=== PATIENT | female | born 1945 | race African-American/Black ===

== ENCOUNTER 2016-08-11 21:06 | Emergency (ER) | payer MEDICARE ==
[~2016-08-11] VITALS: Ht 162.6 cm; Wt 71.0 kg
[~2016-08-11 21:06] MED LIST: ASPI-1073 PO; ATEN-42 PO; ATEN50TA PO; CLOP75TA2 PO; LEVO75TA7 PO; SIMV20TA6 PO; VALS1TAB33 PO
[2016-08-11 21:43] VITALS: BP 150/87
== END 2016-08-11 22:35 | disposition left against medical advice (07) ==
LOC: ER 21:10
DX: R53.1 Weakness (principal); Z53.21 Procedure and treatment not carried out due to patient leaving prior to being seen by health care provider

== ENCOUNTER 2017-07-15 07:51 | Inpatient (IN) | payer MEDICARE ==
[~2017-07-15] VITALS: Ht 162.6 cm; Wt 71.7 kg
[2017-07-15] VITALS (21 sets, daily range): BP systolic 56–135; BP diastolic 17–80
[~2017-07-15 07:51] MED LIST changes: +ACET-2708 PO; +AROM25 PO; -ATEN50TA PO; -CLOP75TA2 PO; +MULT-1146 PO; +POTA10TA11 PO; +VITA1TAB20 PO
[2017-07-15] MEDS ORDERED: SERT25TA PO (09:40)
[2017-07-15] MEDS ORDERED: TRAM50TA3 PO (09:40)
[2017-07-15] MEDS ORDERED: ZOLP10TA2 PO (09:40)
[2017-07-15] MEDS ORDERED: IODIXANOL 320MG/ML 100 ML BOTTLE IV ONE (09:56)
[2017-07-15] MEDS ORDERED: LIDOCAINE HCL 1% 20ML VIAL (Pyxis) INJ ONE (10:07)
[2017-07-15] MEDS ORDERED: MIDAZOLAM HCL 2 MG/2 ML VIAL ONE (10:11)
[2017-07-15] MEDS ORDERED: FENTANYL CITRATE/PF 50MCG/ML 2ML VIAL ONE (10:11)
[2017-07-15] MEDS ORDERED: IOVERSOL 240MG/ML 100ML BOTTLE IV ONE (10:25)
[2017-07-15] MEDS ORDERED: ASPIRIN 325MG TABLET ONE (11:49)
[2017-07-15] MEDS ORDERED: CLOPIDOGREL 75MG TABLET ONE (11:49)
[2017-07-15] MEDS ORDERED: ATROPINE SULFATE 1MG/10ML SYR IV PRN (12:00)
[2017-07-15] MEDS ORDERED: ACETAMINOPHEN 325MG TABLET PO PRN (12:00)
[2017-07-15] MEDS ORDERED: ZOLPIDEM TARTRATE 5MG TABLET PO PRN (15:45)
[2017-07-15] MEDS ORDERED: MORPHINE SULFATE 2 MG/ML CPJ (NOT FOR IM USE) IV PRN (15:45)
[2017-07-15] MEDS ORDERED: HYDROCODONE/ACETAMINOPHEN 5/325MG TABLET PO PRN (15:45)
[2017-07-15] MEDS ORDERED: HEPARIN SODIUM 1,000 UNIT/1ML VIAL IV ONE (16:00)
[2017-07-15] MEDS ORDERED: MORPHINE SULFATE 2 MG/ML CPJ (NOT FOR IM USE) IV NR (16:20)
[2017-07-15] MEDS ORDERED: ATROPINE SULFATE 1MG/10ML SYR ONE (16:25)
[2017-07-15] MEDS ORDERED: MORPHINE SULFATE 4 MG/ML CPJ (NOT FOR IM USE) IV PRN (16:48)
[2017-07-15] MEDS ORDERED: MORPHINE SULFATE 4 MG/ML CPJ (NOT FOR IM USE) IV NR (17:00)
[2017-07-16] VITALS (14 sets, daily range): BP systolic 102–136; BP diastolic 54–73
[2017-07-16 05:50] LABS: BASOPHILS % 0.5 % (0.0-2.0); EOSINOPHILS % 2.3 % (0.0-5.0); HEMATOCRIT. 37.3 % (36.0-48.0); HEMOGLOBIN. 12.4 g/dL (12.0-16.0); LYMPHOCYTES % 24.1 % (20.0-50.0); MEAN CORPUSCULAR HEMOGLOBIN 30.6 pg (28.0-32.0); MEAN CORPUSCULAR VOLUME 92.5 fL (81.0-99.0); MEAN PLATELET VOLUME 8.2 fl (7.4-10.4); NEUTROPHILS % 64.1 % (40.0-76.0); PLATELET 176 x1000/uL (130-400); RED BLOOD CELL COUNT 4.04 mill/uL (4.2-5.4); RED CELL DISTRIBUTION WIDTH 14.9 % (11.6-14.6)
[2017-07-16 06:16] LABS: CHLORIDE 106 mEq/L (98-107)
[2017-07-16 07:06] LABS: PHOSPHORUS 3.1 mg/dL (2.5-4.9)
[2017-07-16] MEDS: CLOPIDOGREL 75MG TABLET PO SCH ×2 (09:15→09:38)
[2017-07-16] MEDS: ASPIRIN 325MG TABLET PO SCH ×2 (09:15→09:38)
[2017-07-16] MEDS ORDERED: POTASSIUM CHLORIDE 20MEQ TABLET SR PO NR (10:00)
== END 2017-07-16 11:30 | disposition home or self-care (01) | DRG 254 ==
LOC: CCL 07:51 → CVICU 07:52
PROVIDERS: ADMIT Specialist; ATTEND Specialist
PROC: B41G1ZZ Fluoroscopy of Left Lower Extremity Arteries using Low Osmolar Contrast (ICD-10-PCS; 2017-07-15)
PROC: B41F1ZZ Fluoroscopy of Right Lower Extremity Arteries using Low Osmolar Contrast (ICD-10-PCS; 2017-07-15)
PROC: 047J34Z Dilation of Left External Iliac Artery with Drug-eluting Intraluminal Device, Percutaneous Approach (ICD-10-PCS; principal; 2017-07-15 12:20)
DX: I73.9 Peripheral vascular disease, unspecified (principal); I45.10 Unspecified right bundle-branch block; I11.9 Hypertensive heart disease without heart failure; E03.9 Hypothyroidism, unspecified; E78.5 Hyperlipidemia, unspecified; E87.6 Hypokalemia; F32.9 Major depressive disorder, single episode, unspecified; I25.10 Atherosclerotic heart disease of native coronary artery without angina pectoris; I70.8 Atherosclerosis of other arteries; Z90.49 Acquired absence of other specified parts of digestive tract; Z85.048 Personal history of other malignant neoplasm of rectum, rectosigmoid junction, and anus; Z95.5 Presence of coronary angioplasty implant and graft; Z79.899 Other long term (current) drug therapy
CPT/HCPCS: 36415; 37221; 75716; 80048; 83735; 84100; 85025; 85347; C1725; C1726; C1769; C1876; C1887; C1893; C1894; J0461; J1644; J2250; J3010; J3490; J7030; Q9967

== ENCOUNTER 2018-04-08 10:53 | Inpatient (IN) | payer MEDICARE ==
[~2018-04-08] VITALS: Ht 162.6 cm; Wt 72.6 kg
[~2018-04-08 10:53] MED LIST changes: +SERT25TA PO; +TRAM50TA3 PO; +ZOLP10TA2 PO
[2018-04-08] MEDS ORDERED: FENTANYL CITRATE/PF 50MCG/ML 2ML VIAL ONE (13:59)
[2018-04-08] MEDS ORDERED: MIDAZOLAM HCL 2 MG/2 ML VIAL ONE (13:59)
[2018-04-08] MEDS ORDERED: LIDOCAINE HCL 1% 20ML VIAL (Pyxis) INJ ONE (14:00)
[2018-04-08] MEDS ORDERED: IODIXANOL 320MG/ML 100 ML BOTTLE IV ONE (14:04)
[2018-04-08] MEDS ORDERED: NITROGLYCERIN 50MCG/ML 10ML VIAL (CATH LAB) IV ONE (14:21)
[2018-04-08] MEDS ORDERED: NICARDIPINE 100MCG/ML 10ML VIAL (CATH LAB) IV ONE (14:21)
[2018-04-08] MEDS ORDERED: IOHEXOL-300 100 ML BOTTLE ONE (14:29)
[2018-04-08] MEDS ORDERED: CLOP75TA33 PO (14:31)
[2018-04-08] MEDS ORDERED: HEPARIN SODIUM 1,000 UNIT/1ML VIAL IV ONE ×2 (14:49→15:08)
[2018-04-08] MEDS ORDERED: ATROPINE SULFATE 1MG/10ML SYR IV PRN (15:00)
[2018-04-08] MEDS ORDERED: ACETAMINOPHEN 325MG TABLET PO PRN (15:00)
[2018-04-08] MEDS ORDERED: ONDANSETRON HCL 4MG/2ML INJ IV PRN (15:00)
[2018-04-08] MEDS ORDERED: ASPIRIN 325MG TABLET ONE (15:05)
[2018-04-08] MEDS ORDERED: CLOPIDOGREL 75MG TABLET ONE (15:06)
[2018-04-08 15:30] VITALS: BP 144/68
[2018-04-08 15:45] VITALS: BP 128/80
[2018-04-08 18:00] VITALS: BP 124/68
[2018-04-08] MEDS ORDERED: ZOLPIDEM TARTRATE 5MG TABLET PO PRN (18:15)
[2018-04-08 20:00] VITALS: BP 148/84
[2018-04-08] MEDS ORDERED: ATORVASTATIN CALCIUM 10MG TABLET PO SCH (21:00)
[2018-04-08 22:00] VITALS: BP 135/73
[2018-04-09] VITALS (9 sets, daily range): BP systolic 95–156; BP diastolic 53–79
[2018-04-09] MEDS ORDERED: LEVOTHYROXINE SODIUM 75MCG TABLET PO SCH (06:50)
[2018-04-09 07:40] LABS: BASOPHILS % 0.8 % (0.0-2.0); EOSINOPHILS % 3.5 % (0.0-5.0); HEMATOCRIT. 42.2 % (36.0-48.0); HEMOGLOBIN. 13.9 g/dL (12.0-16.0); LYMPHOCYTES % 24.9 % (20.0-50.0); MEAN CORPUSCULAR HEMOGLOBIN 30.5 pg (28.0-32.0); MEAN CORPUSCULAR VOLUME 92.4 fL (81.0-99.0); MEAN PLATELET VOLUME 8.6 fl (7.4-10.4); MONOCYTES % 8.3 % (2.0-8.0); NEUTROPHILS % 62.5 % (40.0-76.0); PLATELET 164 x1000/uL (130-400); RED BLOOD CELL COUNT 4.57 mill/uL (4.2-5.4); RED CELL DISTRIBUTION WIDTH 15.1 % (11.6-14.6)
[2018-04-09] MEDS ORDERED: ASPIRIN 325MG TABLET PO SCH (09:00)
[2018-04-09] MEDS ORDERED: CLOPIDOGREL 75MG TABLET PO SCH (09:00)
[2018-04-09] MEDS ORDERED: ATENOLOL 25MG TABLET PO SCH (09:00)
[2018-04-09 10:37] LABS: CHLORIDE 106 mEq/L (98-107)
== END 2018-04-09 11:52 | disposition home or self-care (01) | DRG 247 ==
LOC: CCL 10:53 → 3WST 10:54
PROVIDERS: ADMIT Specialist; ATTEND Specialist
PROC: 4A023N7 Measurement of Cardiac Sampling and Pressure, Left Heart, Percutaneous Approach (ICD-10-PCS; principal; 2018-04-08)
PROC: 027034Z Dilation of Coronary Artery, One Artery with Drug-eluting Intraluminal Device, Percutaneous Approach (ICD-10-PCS; 2018-04-08)
PROC: B2111ZZ Fluoroscopy of Multiple Coronary Arteries using Low Osmolar Contrast (ICD-10-PCS; 2018-04-08)
PROC: B2151ZZ Fluoroscopy of Left Heart using Low Osmolar Contrast (ICD-10-PCS; 2018-04-08)
PROC: B240ZZ3 Ultrasonography of Single Coronary Artery, Intravascular (ICD-10-PCS; 2018-04-08)
DX: T82.855A Stenosis of coronary artery stent, initial encounter (principal); I50.22 Chronic systolic (congestive) heart failure; I25.10 Atherosclerotic heart disease of native coronary artery without angina pectoris; E03.9 Hypothyroidism, unspecified; E78.5 Hyperlipidemia, unspecified; F51.04 Psychophysiologic insomnia; I11.0 Hypertensive heart disease with heart failure; I73.9 Peripheral vascular disease, unspecified; C50.919 Malignant neoplasm of unspecified site of unspecified female breast; Y83.1 Surgical operation with implant of artificial internal device as the cause of abnormal reaction of the patient, or of later complication, without mention of misadventure at the time of the procedure; Y92.89 Other specified places as the place of occurrence of the external cause; Z79.899 Other long term (current) drug therapy
CPT/HCPCS: 36415; 80048; 85347; 92928; 92978; 93005; 93458; C1725; C1753; C1769; C1874; C1887; C1893; J1644; J2250; J3010; J3490; Q9967

== ENCOUNTER 2021-01-16 09:05 | Inpatient (IN) | payer MEDICARE ==
[~2021-01-16] VITALS: Ht 167.6 cm; Wt 70.5 kg
[~2021-01-16 09:05] MED LIST changes: +CLOP75TA33 PO; +HEPARIN SODIUM 1,000 UNIT/1ML VIAL IV ONE; +NICARDIPINE 100MCG/ML 10ML VIAL (CATH LAB) IV ONE; +NITROGLYCERIN 50MCG/ML 10ML VIAL (CATH LAB) IV ONE; -SERT25TA PO; +SIMV-43 PO; -SIMV20TA6 PO; -TRAM50TA3 PO; -VALS1TAB33 PO
[2021-01-16] MEDS ORDERED: SODIUM CHLORIDE 0.45% 500 ML IV ONE (09:45)
[2021-01-16] MEDS ORDERED: COR6 MT (09:53)
[2021-01-16] MEDS ORDERED: TRAM50TA3 MT (10:23)
[2021-01-16] MEDS ORDERED: LIDOCAINE HCL 1% 20ML VIAL (Pyxis) INJ ONE (12:43)
[2021-01-16] MEDS ORDERED: IODIXANOL 320MG/ML 100 ML BOTTLE IV ONE ×2 (12:44→13:40)
[2021-01-16] MEDS ORDERED: MIDAZOLAM HCL 5 MG/5 ML VIAL ONE (13:00)
[2021-01-16] MEDS ORDERED: FENTANYL CITRATE/PF 50MCG/ML 5ML VIAL ONE (13:01)
[2021-01-16] MEDS ORDERED: HEPARIN 1000 UNITS/ML 10ML ONE (13:26)
[2021-01-16] MEDS ORDERED: IOHEXOL-300 100 ML BOTTLE ONE (13:34)
[2021-01-16] MEDS ORDERED: CLOPIDOGREL 75MG TABLET ONE (13:52)
[2021-01-16] MEDS ORDERED: ASPIRIN 325MG TABLET ONE (13:52)
[2021-01-16] MEDS ORDERED: ACETAMINOPHEN 325MG TABLET PO PRN (14:00)
[2021-01-16] MEDS ORDERED: ATROPINE SULFATE 1MG/10ML SYR IV PRN (14:00)
[2021-01-16] MEDS ORDERED: MIDAZOLAM HCL 2 MG/2 ML VIAL ONE (14:21)
[2021-01-16] MEDS ORDERED: FENTANYL CITRATE/PF 50MCG/ML 2ML VIAL ONE (14:21)
[2021-01-16 16:00] VITALS: BP 156/74
[2021-01-16 16:14] VITALS: BP 156/74
[2021-01-16 18:00] VITALS: BP 124/71
[2021-01-16 20:00] VITALS: BP 103/58
[2021-01-16] MEDS: CARVEDILOL 3.125 MG TABLET PO SCH (20:43)
[2021-01-16] MEDS ORDERED: ATORVASTATIN CALCIUM 10MG TABLET PO SCH (21:00)
[2021-01-16 22:00] VITALS: BP 116/60
[2021-01-17] VITALS (8 sets, daily range): BP systolic 103–156; BP diastolic 62–97
[2021-01-17] MEDS: CARVEDILOL 3.125 MG TABLET PO SCH (08:40)
[2021-01-17] MEDS ORDERED: CLOPIDOGREL 75MG TABLET PO SCH (09:00)
[2021-01-17] MEDS ORDERED: ASPIRIN 325MG TABLET PO SCH (09:00)
[2021-01-17 10:45] LABS: BASOPHILS % 0.5 % (0.0-2.0); EOSINOPHILS % 2.9 % (0.0-5.0); HEMATOCRIT. 42.5 % (36.0-48.0); HEMOGLOBIN. 14.1 g/dL (12.0-16.0); LYMPHOCYTES % 18.6 % (20.0-50.0); MEAN CORPUSCULAR VOLUME 93.4 fL (81.0-99.0); MEAN PLATELET VOLUME 8.2 fl (7.4-10.4); PLATELET 156 x1000/uL (130-400); RED BLOOD CELL COUNT 4.55 mill/uL (4.2-5.4); RED CELL DISTRIBUTION WIDTH 14.7 % (11.6-14.6)
== END 2021-01-17 13:30 | disposition home or self-care (01) | DRG 247 ==
LOC: CCL 09:05 → 3WST 09:06
PROVIDERS: ADMIT Specialist; ATTEND Specialist
PROC: 027035Z Dilation of Coronary Artery, One Artery with Two Drug-eluting Intraluminal Devices, Percutaneous Approach (ICD-10-PCS; principal; 2021-01-16)
PROC: 4A023N7 Measurement of Cardiac Sampling and Pressure, Left Heart, Percutaneous Approach (ICD-10-PCS; 2021-01-16)
PROC: B211YZZ Fluoroscopy of Multiple Coronary Arteries using Other Contrast (ICD-10-PCS; 2021-01-16)
PROC: B215YZZ Fluoroscopy of Left Heart using Other Contrast (ICD-10-PCS; 2021-01-16)
DX: T82.855A Stenosis of coronary artery stent, initial encounter (principal); I13.0 Hypertensive heart and chronic kidney disease with heart failure and stage 1 through stage 4 chronic kidney disease, or unspecified chronic kidney disease; I25.10 Atherosclerotic heart disease of native coronary artery without angina pectoris; E78.5 Hyperlipidemia, unspecified; G89.4 Chronic pain syndrome; I25.5 Ischemic cardiomyopathy; I45.10 Unspecified right bundle-branch block; I34.0 Nonrheumatic mitral (valve) insufficiency; I73.9 Peripheral vascular disease, unspecified; E66.9 Obesity, unspecified; I50.9 Heart failure, unspecified; N18.9 Chronic kidney disease, unspecified; K21.9 Gastro-esophageal reflux disease without esophagitis; Y83.8 Other surgical procedures as the cause of abnormal reaction of the patient, or of later complication, without mention of misadventure at the time of the procedure; Z85.3 Personal history of malignant neoplasm of breast; Z79.02 Long term (current) use of antithrombotics/antiplatelets; Z79.899 Other long term (current) drug therapy; Z79.82 Long term (current) use of aspirin; Z79.1 Long term (current) use of non-steroidal anti-inflammatories (NSAID); Z79.890 Hormone replacement therapy; Z68.25 Body mass index [BMI] 25.0-25.9, adult; Z87.891 Personal history of nicotine dependence; Y92.89 Other specified places as the place of occurrence of the external cause
CPT/HCPCS: 36415; 80048; 83735; 85025; 85347; 92928; 93005; 93458; C1769; C1874; C1887; C1893; J1644; J2250; J3010; J3490; Q9967

== ENCOUNTER 2023-09-23 19:47 | Emergency (ER) | payer MEDICAID, MEDICARE ==
[~2023-09-23] VITALS: Ht 165.1 cm; Wt 73.0 kg
[~2023-09-23 19:47] MED LIST changes: +COR6 MT; -HEPARIN SODIUM 1,000 UNIT/1ML VIAL IV ONE; -NICARDIPINE 100MCG/ML 10ML VIAL (CATH LAB) IV ONE; -NITROGLYCERIN 50MCG/ML 10ML VIAL (CATH LAB) IV ONE; +POTA-185 PO; -POTA10TA11 PO; +TRAM50TA3 MT; +VITA-384 PO; -VITA1TAB20 PO; -ZOLP10TA2 PO
[2023-09-23 19:49] VITALS: TEMP 98.5; O2SAT 99
[2023-09-23] MEDS ORDERED: DICL100G58 TP (21:59)
[2023-09-23 22:28] VITALS: BP 171/86; PULSE 68; RESP 20
== END 2023-09-23 22:30 | disposition home or self-care (01) ==
LOC: ER 19:47
DX: S83.8X1A Sprain of other specified parts of right knee, initial encounter (principal); E78.00 Pure hypercholesterolemia, unspecified; I10 Essential (primary) hypertension; E05.80 Other thyrotoxicosis without thyrotoxic crisis or storm; X58.XXXA Exposure to other specified factors, initial encounter; Y93.89 Activity, other specified; Y92.89 Other specified places as the place of occurrence of the external cause; Y99.8 Other external cause status
CPT/HCPCS: 73560; 99283

== ENCOUNTER 2023-12-01 02:29 | Inpatient (IN) | payer MEDICARE ==
[~2023-12-01] VITALS: Ht 165.1 cm; Wt 70.3 kg
[~2023-12-01 02:29] MED LIST changes: +DICL100G58 TP; -VITA-384 PO; +VITA1TAB20 PO
[2023-12-01 03:15] LABS: BASOPHILS % 1.3 % (0.0-2.0); EOSINOPHILS % 2.1 % (0.0-5.0); HEMATOCRIT. 40.3 % (36.0-48.0); LYMPHOCYTES % 14.9 % (20.0-50.0); MEAN CORPUSCULAR HEMOGLOBIN 29.8 pg (28.0-32.0); MEAN CORPUSCULAR HGB CONC 32.2 g/dL (31.0-37.0); MEAN CORPUSCULAR VOLUME 92.8 fL (81.0-99.0); MEAN PLATELET VOLUME 8.9 fl (7.4-10.4); MONOCYTES % 7.4 % (2.0-8.0); NEUTROPHILS % 74.3 % (40.0-76.0); PLATELET 162 x1000/uL (130-400); RED BLOOD CELL COUNT 4.35 mill/uL (4.2-5.4); RED CELL DISTRIBUTION WIDTH 15.9 % (11.6-14.6); WHITE BLOOD COUNT 6.4 x1000/uL (4.5-11.0)
[2023-12-01 03:25] LABS: CARBON DIOXIDE 27 mEq/L (21-32); CHLORIDE 109 mEq/L (98-107); POTASSIUM 3.7 mEq/L (3.5-5.1); SODIUM 142 mEq/L (136-145)
[2023-12-01 03:26] LABS: CALCIUM 10.2 mg/dL (8.7-10.4); PARTIAL THROMBOPLASTIN TIME 23.8 sec (23.4-31.0)
[2023-12-01 03:31] LABS: GLUCOSE 130 mg/dL (70-105); UREA NITROGEN BLOOD 11 mg/dL (9-23)
[2023-12-01 04:13] LABS: ETHANOL BLOOD < 10 mg/dL (<10); TROPONIN I HIGH SENSITIVITY 200 ng/L (3.0-34)
[2023-12-01] MEDS ORDERED: HEPARIN 60 UNITS/KG BOLUS IV SCH (04:45)
[2023-12-01] MEDS ORDERED: HEPARIN BOLUS PRN aPTT 30-44 IV ×2 (04:45)
[2023-12-01] MEDS ORDERED: HEPARIN BOLUS PRN aPTT <30 IV ×2 (04:45)
[2023-12-01] MEDS: HEPARIN 60 UNITS/KG BOLUS IV NR (06:09)
[2023-12-01] MEDS: HEPARIN 25,000 UNITS PREMIX 250 ML IV SCH (06:13)
[2023-12-01] MEDS ORDERED: ONDANSETRON HCL 4MG/2ML INJ IV PRN (06:15)
[2023-12-01] MEDS ORDERED: IPRATROPIUM/ALBUTEROL 0.5-3(2.5)MG/3ML NEB HHN PRN (06:15)
[2023-12-01] MEDS: ASPIRIN 325MG EC TABLET PO NR (06:16)
[2023-12-01] MEDS ORDERED: ASPIRIN 81MG EC TABLET PO SCH (09:00)
[2023-12-01] MEDS ORDERED: CLOPIDOGREL 75MG TABLET PO SCH (09:00)
[2023-12-01] MEDS ORDERED: CARVEDILOL 6.25 MG TABLET PO SCH (09:00)
[2023-12-01] MEDS ORDERED: ATENOLOL 25MG TABLET PO SCH (09:00)
[2023-12-01 09:47] LABS: TROPONIN I HIGH SENSITIVITY 149 ng/L (3.0-34)
[2023-12-01 12:13] VITALS: BP 170/73; PULSE 63; RESP 20; TEMP 98.8
[2023-12-01] MEDS: CLONIDINE 0.1MG TABLET PO PRN (12:40)
[2023-12-01 16:00] VITALS: BP 121/58; PULSE 61; RESP 18; TEMP 97.5
[2023-12-01] MEDS: NITROGLYCERIN OINT 1GM/INCH UDPKT TD SCH (16:11)
[2023-12-01] MEDS: ASPIRIN 81MG TABLET PO SCH (16:12)
[2023-12-01] MEDS: ENOXAPARIN 80MG/0.8ML SYR SUBCUT SCH (16:13)
[2023-12-01 17:15] LABS: CREATINE KINASE MB FRACTION 2.1 ng/mL (0.5-3.6)
[2023-12-01 20:00] VITALS: BP 127/80; PULSE 59; RESP 18; TEMP 98.1
[2023-12-01] MEDS: CARVEDILOL 6.25 MG TABLET PO SCH (20:56)
[2023-12-01] MEDS: ATORVASTATIN CALCIUM 40MG TABLET PO SCH (21:00)
[2023-12-01] MEDS: FUROSEMIDE 40MG/4ML VIAL IVP SCH (21:00)
[2023-12-01] MEDS ORDERED: ATORVASTATIN CALCIUM 20MG TABLET PO SCH (21:00)
[2023-12-02] VITALS (7 sets, daily range): BP systolic 108–163; BP diastolic 54–77; PULSE 53–69; RESP 16–18; TEMP 97.5–98.5
[2023-12-02] MEDS: ACETAMINOPHEN 325MG TABLET PO PRN (00:17)
[2023-12-02] MEDS: LEVOTHYROXINE SODIUM 75MCG TABLET PO SCH (05:04)
[2023-12-02 07:25] LABS: CARBON DIOXIDE 25 mEq/L (21-32); CHLORIDE 108 mEq/L (98-107); POTASSIUM 3.6 mEq/L (3.5-5.1); SODIUM 141 mEq/L (136-145)
[2023-12-02 07:26] LABS: CALCIUM 9.6 mg/dL (8.7-10.4); EOSINOPHILS % 2.8 % (0.0-5.0); HEMATOCRIT. 36.6 % (36.0-48.0); HEMOGLOBIN. 11.7 g/dL (12.0-16.0); LYMPHOCYTES % 21.4 % (20.0-50.0); MEAN CORPUSCULAR HEMOGLOBIN 29.6 pg (28.0-32.0); MEAN CORPUSCULAR HGB CONC 32.1 g/dL (31.0-37.0); MEAN CORPUSCULAR VOLUME 92.3 fL (81.0-99.0); MONOCYTES % 11.1 % (2.0-8.0); NEUTROPHILS % 63.7 % (40.0-76.0); PLATELET 154 x1000/uL (130-400); RED BLOOD CELL COUNT 3.96 mill/uL (4.2-5.4); RED CELL DISTRIBUTION WIDTH 15.5 % (11.6-14.6); WHITE BLOOD COUNT 5.2 x1000/uL (4.5-11.0)
[2023-12-02 07:31] LABS: CREATININE 0.9 mg/dL (0.6-1.0); GLUCOSE 88 mg/dL (70-105); UREA NITROGEN BLOOD 12 mg/dL (9-23)
[2023-12-02 08:11] LABS: TROPONIN I HIGH SENSITIVITY 166 ng/L (3.0-34)
[2023-12-02] MEDS: POTASSIUM CHLORIDE 20MEQ TABLET SR PO SCH (09:29)
[2023-12-02 09:30] LABS: T4 FREE 1.47 ng/dL (0.89-1.76); THYROID STIMULATING HORMONE 2.7 uIU/mL (0.55-4.78)
[2023-12-02] MEDS: CLOPIDOGREL 75MG TABLET PO SCH (09:33)
[2023-12-02] MEDS: MAGNESIUM OXIDE 400MG TABLET PO SCH (10:48)
[2023-12-02] MEDS: MAGNESIUM 2 G PREMIX 50 ML IV NR (10:48)
[2023-12-02] MEDS: GUAIFENESIN 200MG/10ML SUGAR FREE UDC PO SCH (18:30)
[2023-12-03 04:00] VITALS: BP 150/72; PULSE 58; RESP 16; TEMP 97.6
[2023-12-03] MEDS: FUROSEMIDE 40MG/4ML VIAL IVP SCH (06:43)
[2023-12-03 07:31] LABS: BASOPHILS % 0.6 % (0.0-2.0); EOSINOPHILS % 2.4 % (0.0-5.0); HEMATOCRIT. 39.2 % (36.0-48.0); HEMOGLOBIN. 12.6 g/dL (12.0-16.0); LYMPHOCYTES % 19.2 % (20.0-50.0); MEAN CORPUSCULAR HEMOGLOBIN 29.7 pg (28.0-32.0); MEAN CORPUSCULAR VOLUME 92.7 fL (81.0-99.0); MEAN PLATELET VOLUME 8.6 fl (7.4-10.4); MONOCYTES % 11.1 % (2.0-8.0); NEUTROPHILS % 66.7 % (40.0-76.0); PLATELET 166 x1000/uL (130-400); RED BLOOD CELL COUNT 4.23 mill/uL (4.2-5.4); RED CELL DISTRIBUTION WIDTH 15.5 % (11.6-14.6); WHITE BLOOD COUNT 5.5 x1000/uL (4.5-11.0)
[2023-12-03 07:33] LABS: CHLORIDE 107 mEq/L (98-107); POTASSIUM 3.7 mEq/L (3.5-5.1); SODIUM 141 mEq/L (136-145)
[2023-12-03 07:34] LABS: CARBON DIOXIDE 27 mEq/L (21-32)
[2023-12-03 07:35] LABS: CALCIUM 9.7 mg/dL (8.7-10.4)
[2023-12-03] MEDS ORDERED: LIDOCAINE HCL 1% 10 MG/ML 10ML VIAL ONE (07:37)
[2023-12-03] MEDS ORDERED: HEPARIN 1000 UNITS/ML 10ML ONE (07:37)
[2023-12-03] MEDS ORDERED: IODIXANOL 320MG/ML 100 ML BOTTLE IV ONE ×2 (07:37→09:26)
[2023-12-03 07:39] LABS: CREATININE 0.9 mg/dL (0.6-1.0); GLUCOSE 102 mg/dL (70-105)
[2023-12-03 07:40] LABS: UREA NITROGEN BLOOD 16 mg/dL (9-23)
[2023-12-03 08:31] LABS: TROPONIN I HIGH SENSITIVITY 164 ng/L (3.0-34)
[2023-12-03] MEDS ORDERED: FENTANYL CITRATE/PF 50MCG/ML 2ML VIAL ONE (08:45)
[2023-12-03] MEDS ORDERED: MIDAZOLAM HCL 2 MG/2 ML VIAL ONE (08:45)
[2023-12-03] MEDS ORDERED: CLOPIDOGREL 75MG TABLET ONE ×2 (09:47→10:07)
[2023-12-03] MEDS ORDERED: ASPIRIN 325MG TABLET ONE (09:47)
[2023-12-03] MEDS ORDERED: ACETAMINOPHEN 325MG TABLET PO PRN (10:15)
[2023-12-03] MEDS ORDERED: ATROPINE SULFATE 1MG/10ML SYR IV PRN ×2 (10:15)
[2023-12-03 10:18] VITALS: BP 131/90; PULSE 59; RESP 18; TEMP 97.9
[2023-12-03 12:00] VITALS: BP 124/88; PULSE 66; RESP 17; TEMP 97.9
[2023-12-03 16:00] VITALS: BP 120/77; PULSE 60; RESP 18; TEMP 98.3
[2023-12-03 20:00] VITALS: BP 105/71; PULSE 60; RESP 19; TEMP 98.1
[2023-12-03] MEDS: ACETAMINOPHEN 325MG TABLET PO PRN (21:01)
[2023-12-04] VITALS: BP 109/77; PULSE 77; RESP 16; TEMP 97.8
[2023-12-04 04:00] VITALS: PULSE 53; RESP 16
[2023-12-04 07:15] LABS: CHLORIDE 106 mEq/L (98-107); POTASSIUM 3.8 mEq/L (3.5-5.1); SODIUM 139 mEq/L (136-145)
[2023-12-04 07:16] LABS: BASOPHILS % 0.8 % (0.0-2.0); CARBON DIOXIDE 26 mEq/L (21-32); EOSINOPHILS % 3.2 % (0.0-5.0); HEMATOCRIT. 39.4 % (36.0-48.0); HEMOGLOBIN. 12.9 g/dL (12.0-16.0); LYMPHOCYTES % 18.2 % (20.0-50.0); MEAN CORPUSCULAR HEMOGLOBIN 30.3 pg (28.0-32.0); MEAN CORPUSCULAR HGB CONC 32.7 g/dL (31.0-37.0); MEAN CORPUSCULAR VOLUME 92.5 fL (81.0-99.0); MEAN PLATELET VOLUME 8.9 fl (7.4-10.4); MONOCYTES % 11.3 % (2.0-8.0); NEUTROPHILS % 66.5 % (40.0-76.0); PLATELET 175 x1000/uL (130-400); RED BLOOD CELL COUNT 4.26 mill/uL (4.2-5.4); RED CELL DISTRIBUTION WIDTH 15.5 % (11.6-14.6); WHITE BLOOD COUNT 5.6 x1000/uL (4.5-11.0)
[2023-12-04 07:17] LABS: CALCIUM 9.9 mg/dL (8.7-10.4)
[2023-12-04 07:21] LABS: GLUCOSE 90 mg/dL (70-105); UREA NITROGEN BLOOD 19 mg/dL (9-23)
[2023-12-04 08:00] VITALS: BP 133/108; PULSE 74; RESP 15; TEMP 98.2
[2023-12-04 11:23] VITALS: BP 133/108; PULSE 63; TEMP 98.5; O2SAT 95
== END 2023-12-04 15:02 | disposition home health service (06) | DRG 321 ==
LOC: ER 02:36 → 5WST 04:40 → 7EST 11:46 → 3WST 12-03 10:44
PROVIDERS: ADMIT Hospitalist; ATTEND Hospitalist
PROC: 027035Z Dilation of Coronary Artery, One Artery with Two Drug-eluting Intraluminal Devices, Percutaneous Approach (ICD-10-PCS; principal; 2023-12-03)
PROC: 4A023N7 Measurement of Cardiac Sampling and Pressure, Left Heart, Percutaneous Approach (ICD-10-PCS; 2023-12-03)
PROC: B2101ZZ Fluoroscopy of Single Coronary Artery using Low Osmolar Contrast (ICD-10-PCS; 2023-12-03)
DX: T82.855A Stenosis of coronary artery stent, initial encounter (principal); I21.4 Non-ST elevation (NSTEMI) myocardial infarction; I50.33 Acute on chronic diastolic (congestive) heart failure; J96.01 Acute respiratory failure with hypoxia; I11.0 Hypertensive heart disease with heart failure; I16.0 Hypertensive urgency; E03.9 Hypothyroidism, unspecified; E78.00 Pure hypercholesterolemia, unspecified; E87.6 Hypokalemia; Y83.8 Other surgical procedures as the cause of abnormal reaction of the patient, or of later complication, without mention of misadventure at the time of the procedure; C50.919 Malignant neoplasm of unspecified site of unspecified female breast; I49.3 Ventricular premature depolarization; I25.10 Atherosclerotic heart disease of native coronary artery without angina pectoris; E11.51 Type 2 diabetes mellitus with diabetic peripheral angiopathy without gangrene; E83.42 Hypomagnesemia; I25.2 Old myocardial infarction; Z79.02 Long term (current) use of antithrombotics/antiplatelets; Z79.899 Other long term (current) drug therapy; Z79.82 Long term (current) use of aspirin; Z85.038 Personal history of other malignant neoplasm of large intestine; Z87.891 Personal history of nicotine dependence; Z90.49 Acquired absence of other specified parts of digestive tract; Y92.89 Other specified places as the place of occurrence of the external cause; Z82.49 Family history of ischemic heart disease and other diseases of the circulatory system
CPT/HCPCS: 36415; 71045; 80048; 80061; 80320; 82553; 83735; 83880; 84439; 84443; 84484; 85025; 85347; 92928; 93005; 93306; 93458; 99291; C1769; C1874; C1887; C1893; J1644; J1650; J1940; J2250; J3010; J3475; J3490; Q9967; G0480

== ENCOUNTER 2024-01-08 07:47 | Inpatient (IN) | payer MEDICARE ==
[2024-01-08] VITALS (12 sets, daily range): BP systolic 102–158; BP diastolic 54–96; PULSE 20–72; RESP 13–21; TEMP 36.55848–36.83628; O2SAT 81–99
[~2024-01-08] VITALS: Ht 170.2 cm; Wt 70.4 kg
[~2024-01-08 07:47] MED LIST changes: -AROM25 PO; +FURO-152 PO; +VITA-384 PO; -VITA1TAB20 PO
[2024-01-08] MEDS: SODIUM CHLORIDE 0.45% 500 ML IV ONE (09:00)
[2024-01-08] MEDS ORDERED: ATOR80TA PO (09:08)
[2024-01-08] MEDS ORDERED: MIDAZOLAM HCL 2 MG/2 ML VIAL ONE (11:49)
[2024-01-08] MEDS ORDERED: LIDOCAINE HCL 1% 20ML VIAL ONE (11:50)
[2024-01-08] MEDS ORDERED: HEPARIN 1000 UNITS/ML 10ML ONE (11:51)
[2024-01-08] MEDS ORDERED: FENTANYL CITRATE/PF 50MCG/ML 2ML VIAL ONE (11:52)
[2024-01-08] MEDS ORDERED: ATROPINE SULFATE 1MG/10ML SYR ONE (12:10)
[2024-01-08] MEDS ORDERED: IODIXANOL 320MG/ML 100 ML BOTTLE IV ONE (12:34)
[2024-01-08] MEDS ORDERED: ASPIRIN 325MG TABLET ONE (12:44)
[2024-01-08] MEDS ORDERED: CLOPIDOGREL 75MG TABLET ONE (12:44)
[2024-01-08] MEDS ORDERED: ONDANSETRON HCL 4MG/2ML INJ IV PRN (13:00)
[2024-01-08] MEDS ORDERED: ATROPINE SULFATE 1MG/10ML SYR IV PRN ×3 (13:00)
[2024-01-08] MEDS ORDERED: ACETAMINOPHEN 325MG TABLET PO PRN ×3 (13:00)
[2024-01-08] MEDS ORDERED: ZOLPIDEM TARTRATE 5MG TABLET PO PRN (19:15)
[2024-01-09] VITALS: BP 127/70; PULSE 62; RESP 16; TEMP 36.6696; O2SAT 99
[2024-01-09 04:00] VITALS: BP 114/60; PULSE 58; RESP 15; TEMP 36.55848; O2SAT 97
[2024-01-09 07:06] LABS: BASOPHILS % 0.8 % (0.0-2.0); EOSINOPHILS % 2.8 % (0.0-5.0); HEMATOCRIT. 37.5 % (36.0-48.0); HEMOGLOBIN. 12.2 g/dL (12.0-16.0); LYMPHOCYTES % 18.2 % (20.0-50.0); MEAN CORPUSCULAR HEMOGLOBIN 29.4 pg (28.0-32.0); MEAN CORPUSCULAR HGB CONC 32.4 g/dL (31.0-37.0); MEAN CORPUSCULAR VOLUME 90.6 fL (81.0-99.0); MEAN PLATELET VOLUME 8.7 fl (7.4-10.4); MONOCYTES % 8.1 % (2.0-8.0); NEUTROPHILS % 70.1 % (40.0-76.0); PLATELET 169 x1000/uL (130-400); RED BLOOD CELL COUNT 4.14 mill/uL (4.2-5.4); RED CELL DISTRIBUTION WIDTH 15.1 % (11.6-14.6); WHITE BLOOD COUNT 5.8 x1000/uL (4.5-11.0)
[2024-01-09 07:33] LABS: CARBON DIOXIDE 24 mEq/L (21-32); CHLORIDE 111 mEq/L (98-107); SODIUM 139 mEq/L (136-145)
[2024-01-09 07:35] LABS: CALCIUM 9.6 mg/dL (8.7-10.4)
[2024-01-09 07:40] LABS: CREATININE 0.8 mg/dL (0.6-1.0); GLUCOSE 86 mg/dL (70-105); UREA NITROGEN BLOOD 14 mg/dL (9-23)
[2024-01-09 08:00] VITALS: BP 146/88; PULSE 70; RESP 14; TEMP 36.55848; O2SAT 97
[2024-01-09] MEDS: ASPIRIN 325MG TABLET PO SCH (08:25)
[2024-01-09] MEDS: CLOPIDOGREL 75MG TABLET PO SCH (08:25)
[2024-01-09 09:45] VITALS: BP 146/88; PULSE 70; TEMP 97.8
== END 2024-01-09 10:44 | disposition home or self-care (01) | DRG 322 ==
LOC: CCL 07:47 → 3WST 13:48
PROVIDERS: ADMIT Specialist; ATTEND Specialist
PROC: 027134Z Dilation of Coronary Artery, Two Arteries with Drug-eluting Intraluminal Device, Percutaneous Approach (ICD-10-PCS; principal; 2024-01-08)
PROC: 4A023N7 Measurement of Cardiac Sampling and Pressure, Left Heart, Percutaneous Approach (ICD-10-PCS; 2024-01-08)
PROC: B2111ZZ Fluoroscopy of Multiple Coronary Arteries using Low Osmolar Contrast (ICD-10-PCS; 2024-01-08)
DX: T82.855A Stenosis of coronary artery stent, initial encounter (principal); I42.9 Cardiomyopathy, unspecified; I25.10 Atherosclerotic heart disease of native coronary artery without angina pectoris; E03.9 Hypothyroidism, unspecified; E78.5 Hyperlipidemia, unspecified; I45.10 Unspecified right bundle-branch block; I50.9 Heart failure, unspecified; I11.0 Hypertensive heart disease with heart failure; I73.9 Peripheral vascular disease, unspecified; I34.0 Nonrheumatic mitral (valve) insufficiency; Y83.1 Surgical operation with implant of artificial internal device as the cause of abnormal reaction of the patient, or of later complication, without mention of misadventure at the time of the procedure; Z79.02 Long term (current) use of antithrombotics/antiplatelets; Z79.82 Long term (current) use of aspirin; Z79.899 Other long term (current) drug therapy; Y92.89 Other specified places as the place of occurrence of the external cause; Z79.811 Long term (current) use of aromatase inhibitors; Z85.3 Personal history of malignant neoplasm of breast
CPT/HCPCS: 36415; 80048; 85025; 85347; 92928; 93005; 93454; C1725; C1769; C1874; C1887; J0461; J1644; J2250; J3010; J3490; Q9967

== ENCOUNTER → 2025-02-01 | Outpatient (CLI) | payer MEDICARE ==
[~2025-02-01] MED LIST changes: -ACET-2708 PO; -ASPI-1073 PO; -ATEN-42 PO; +ATOR-388 PO; -DICL100G58 TP; +DOCU-422 PO; -FURO-152 PO; +FURO40TA5 PO; +HYDR25TA78 PO; +NITR-87 MT; -SIMV-43 PO; -TRAM50TA3 MT
== END | disposition home or self-care (01) ==
LOC: MRI 08:06
PROVIDERS: ATTEND Neurological Surgery
DX: M47.813 Spondylosis without myelopathy or radiculopathy, cervicothoracic region (principal); M51.24 Other intervertebral disc displacement, thoracic region; M48.03 Spinal stenosis, cervicothoracic region; M25.78 Osteophyte, vertebrae; M54.2 Cervicalgia; G95.89 Other specified diseases of spinal cord
CPT/HCPCS: 72141; 72146

== ENCOUNTER 2025-02-07 10:30 | Inpatient (IN) | payer MEDICARE ==
[~2025-02-07] VITALS: Ht 170.2 cm; Wt 70.8 kg
[2025-02-07 10:32] VITALS: O2SAT 100
[2025-02-07 12:32] LABS: BASOPHILS % 0.4 % (0.0-2.0); EOSINOPHILS % 1.4 % (0.0-5.0); HEMATOCRIT. 42.8 % (36.0-48.0); HEMOGLOBIN. 13.9 g/dL (12.0-16.0); LYMPHOCYTES % 14.0 % (20.0-50.0); MEAN PLATELET VOLUME 8.3 fl (7.4-10.4); MONOCYTES % 6.4 % (2.0-8.0); NEUTROPHILS % 77.8 % (40.0-76.0); PLATELET 158 x1000/uL (130-400); RED BLOOD CELL COUNT 4.43 mill/uL (4.2-5.4); RED CELL DISTRIBUTION WIDTH 15.6 % (11.6-14.6)
[2025-02-07 12:45] LABS: CREATININE 0.9 mg/dL (0.6-1.0); UREA NITROGEN BLOOD 8 mg/dL (9-23)
[2025-02-07] MEDS: ACETAMINOPHEN 500MG TABLET PO ONE (13:13)
[2025-02-07] MEDS ORDERED: HYDROCODONE/ACETAMINOPHEN 5/325MG TABLET PO PRN (15:15)
[2025-02-07] MEDS ORDERED: NALOXONE HCL 0.4MG/ML VIAL IV PRN (15:30)
[2025-02-07 15:56] VITALS: BP 187/81; PULSE 69; RESP 19; TEMP 36.5848
[2025-02-07 16:00] VITALS: BP 164/97; PULSE 69; RESP 19; TEMP 36.6; O2SAT 100
[2025-02-07] MEDS ORDERED: IPRATROPIUM/ALBUTEROL 0.5-3(2.5)MG/3ML NEB HHN PRN (16:00)
[2025-02-07] MEDS ORDERED: ACETAMINOPHEN 325MG TABLET PO PRN (16:00)
[2025-02-07] MEDS ORDERED: GUAIFENESIN 200MG/10ML SUGAR FREE UDC PO PRN (16:00)
[2025-02-07] MEDS ORDERED: ONDANSETRON HCL 4MG/2ML INJ IV PRN (16:00)
[2025-02-07] MEDS ORDERED: DOCUSATE SODIUM 100MG CAPSULE PO PRN (16:00)
[2025-02-07] MEDS: CLONIDINE 0.1MG TABLET PO PRN (17:58)
[2025-02-07] MEDS: POTASSIUM CHLORIDE 20MEQ/PACKET PO SCH (18:26)
[2025-02-07] MEDS ORDERED: FERR-71 PO (19:33)
[2025-02-07] MEDS ORDERED: ASPI-1497 MT (19:33)
[2025-02-07 20:00] VITALS: BP 123/69; PULSE 64; RESP 19; TEMP 36; O2SAT 99
[2025-02-07] MEDS: ATORVASTATIN CALCIUM 40MG TABLET PO SCH (21:39)
[2025-02-07] MEDS: HYDRALAZINE HCL 50MG TABLET PO SCH (21:39)
[2025-02-07] MEDS: ACETAMINOPHEN 325MG TABLET PO PRN (22:25)
[2025-02-08] VITALS: BP 106/59; PULSE 61; RESP 18; TEMP 36.6; O2SAT 96
[2025-02-08 04:00] VITALS: BP 123/69; PULSE 64; RESP 19; TEMP 36; O2SAT 99
[2025-02-08 06:12] LABS: CREATININE 0.8 mg/dL (0.6-1.0); UREA NITROGEN BLOOD 9 mg/dL (9-23)
[2025-02-08 06:15] LABS: T4 FREE 1.48 ng/dL (0.89-1.76)
[2025-02-08 06:20] LABS: BASOPHILS % 0.7 % (0.0-2.0); EOSINOPHILS % 2.8 % (0.0-5.0); HEMATOCRIT. 39.1 % (36.0-48.0); HEMOGLOBIN. 12.7 g/dL (12.0-16.0); LYMPHOCYTES % 16.8 % (20.0-50.0); MEAN PLATELET VOLUME 9.1 fl (7.4-10.4); MONOCYTES % 8.9 % (2.0-8.0); NEUTROPHILS % 70.8 % (40.0-76.0); PLATELET 150 x1000/uL (130-400); RED BLOOD CELL COUNT 4.11 mill/uL (4.2-5.4); RED CELL DISTRIBUTION WIDTH 15.5 % (11.6-14.6)
[2025-02-08 06:51] LABS: TROPONIN I HIGH SENSITIVITY 164 ng/L (3.0-34)
[2025-02-08 08:00] VITALS: BP 129/69; PULSE 71; RESP 17; TEMP 36.6; O2SAT 100
[2025-02-08] MEDS: MULTIVITAMINS,THER W-MINERALS TABLET PO SCH (10:07)
[2025-02-08] MEDS: PANTOPRAZOLE SODIUM 40 MG/VIAL IV SCH (10:07)
[2025-02-08 12:00] VITALS: BP 128/60; PULSE 64; RESP 16; TEMP 36.2; O2SAT 99
[2025-02-08] MEDS ORDERED: ACETAMINOPHEN 500MG TABLET PO PRN (14:45)
[2025-02-08] MEDS ORDERED: CLOPIDOGREL 75MG TABLET PO SCH (15:00)
[2025-02-08 16:00] VITALS: BP 136/69; PULSE 69; RESP 17; TEMP 36.5; O2SAT 99
[2025-02-08] MEDS: LEVOTHYROXINE SODIUM 75MCG TABLET PO SCH (16:15)
[2025-02-08] MEDS: ACETAMINOPHEN 500MG TABLET PO SCH (16:16)
[2025-02-08 16:21] LABS: ASPARTATE AMINOTRANSFERASE 27 IU/L (<34)
[2025-02-08 16:22] LABS: BILIRUBIN DIRECT 0.2 mg/dL (<=3.0); BILIRUBIN TOTAL 0.5 mg/dL (0.1-1.0); PROTEIN TOTAL 5.9 g/dL (6.0-8.3)
[2025-02-08 20:00] VITALS: BP 132/57; PULSE 72; RESP 18; TEMP 36.7; O2SAT 99
[2025-02-09] VITALS: BP 130/50; PULSE 75; RESP 18; TEMP 36.8; O2SAT 100
[2025-02-09 02:06] LABS: TROPONIN I HIGH SENSITIVITY 135 ng/L (3.0-34)
[2025-02-09 04:00] VITALS: PULSE 75; RESP 18; TEMP 36.7; O2SAT 100
[2025-02-09 04:43] LABS: BASOPHILS % 0.7 % (0.0-2.0); EOSINOPHILS % 2.9 % (0.0-5.0); HEMATOCRIT. 39.5 % (36.0-48.0); HEMOGLOBIN. 13.1 g/dL (12.0-16.0); LYMPHOCYTES % 17.9 % (20.0-50.0); MEAN PLATELET VOLUME 8.3 fl (7.4-10.4); MONOCYTES % 8.5 % (2.0-8.0); NEUTROPHILS % 70.0 % (40.0-76.0); PLATELET 153 x1000/uL (130-400); RED BLOOD CELL COUNT 4.14 mill/uL (4.2-5.4); RED CELL DISTRIBUTION WIDTH 15.1 % (11.6-14.6)
[2025-02-09 04:56] LABS: CREATININE 0.8 mg/dL (0.6-1.0)
[2025-02-09 04:57] LABS: UREA NITROGEN BLOOD 8 mg/dL (9-23)
[2025-02-09] MEDS: SODIUM CHLORIDE 0.45% 1,000 ML IV SCH (05:17)
[2025-02-09] MEDS ORDERED: BUPIVACAINE HCL/PF 0.5% (5MG/ML) 10ML ONE (06:46)
[2025-02-09] MEDS ORDERED: VANCOMYCIN HCL 1GM VIAL ONE (06:46)
[2025-02-09] MEDS ORDERED: FENTANYL CITRATE/PF 50MCG/ML 5ML VIAL ONE (07:18)
[2025-02-09] MEDS ORDERED: MIDAZOLAM HCL 2 MG/2 ML VIAL ONE (07:18)
[2025-02-09] MEDS ORDERED: PROPOFOL 200MG/20ML VIAL IV ONE (07:18)
[2025-02-09 08:00] VITALS: BP 128/63; PULSE 70; RESP 16; TEMP 36.4; O2SAT 100
[2025-02-09] MEDS ORDERED: ONDANSETRON HCL 4MG/2ML INJ IV PRN (08:00)
[2025-02-09] MEDS ORDERED: HYDRALAZINE 20MG/ML VIAL IV PRN ×2 (08:00)
[2025-02-09] MEDS ORDERED: LORAZEPAM 2MG/ML UD SYRINGE IV NR (08:00)
[2025-02-09] MEDS ORDERED: HYDROMORPHONE HCL/PF 1MG/ML INJ IV PRN (08:00)
[2025-02-09] MEDS ORDERED: ACETAMINOPHEN 1,000MG/100ML PREMIX IV PRN (08:00)
[2025-02-09] MEDS ORDERED: LABETALOL 5MG/ML 4ML INJ IV PRN (08:00)
[2025-02-09] MEDS ORDERED: MEPERIDINE HCL/PF 25MG/ML CPJ IV PRN (08:00)
[2025-02-09] MEDS ORDERED: FAMOTIDINE 20MG/2ML VIAL IV PRN (08:00)
[2025-02-09] MEDS ORDERED: CLOPIDOGREL 75MG TABLET PO SCH (09:00)
[2025-02-09] MEDS: CLOPIDOGREL 75MG TABLET PO SCH (11:11)
[2025-02-09 12:00] VITALS: BP 114/63; PULSE 79; RESP 18; TEMP 35.6; O2SAT 99
[2025-02-09 16:00] VITALS: BP 115/65; PULSE 62; RESP 16; TEMP 35.9; O2SAT 96
[2025-02-09] MEDS ORDERED: ENOXAPARIN 30MG/0.3ML SYR SUBCUT SCH (17:30)
[2025-02-09 20:00] VITALS: BP 145/75; PULSE 78; RESP 18; TEMP 36.6; O2SAT 99
[2025-02-10] VITALS (7 sets, daily range): BP systolic 137–164; BP diastolic 68–85; PULSE 73–83; RESP 17–19; TEMP 35.6–36.6; O2SAT 99–100
[2025-02-10 09:08] LABS: CREATININE 0.8 mg/dL (0.6-1.0)
[2025-02-10 09:09] LABS: UREA NITROGEN BLOOD 6 mg/dL (9-23)
[2025-02-10] MEDS: ENOXAPARIN 40MG/0.4ML SYR SUBCUT SCH (09:54)
[2025-02-10] MEDS: AMLODIPINE 5MG TABLET PO SCH (12:58)
[2025-02-10] MEDS ORDERED: HYDR-4001 PO (17:47)
[2025-02-11] VITALS: BP 143/73; PULSE 74; RESP 18; TEMP 36; O2SAT 97
[2025-02-11 04:00] VITALS: BP 151/73; PULSE 82; RESP 18; TEMP 36.3; O2SAT 94
[2025-02-11 08:00] VITALS: BP 140/71; PULSE 72; RESP 19; TEMP 36.3; O2SAT 99
[2025-02-11 12:00] VITALS: BP 136/69; PULSE 70; RESP 18; TEMP 36.4; O2SAT 99
== END 2025-02-11 16:07 | DRG 562 ==
LOC: ER 10:30 → 7EST 13:37 → EDBEDREQ 13:40 → EDBEDREQTM 13:40 → 4WST 02-11 15:11 → 7EST 02-11 16:05
PROVIDERS: ADMIT Physical Medicine & Rehabilitation Spinal Cord Injury Medicine; ATTEND Hospitalist
PROC: 0QSKXZZ Reposition Left Fibula, External Approach (ICD-10-PCS; principal; 2025-02-09)
DX: S82.62XA Displaced fracture of lateral malleolus of left fibula, initial encounter for closed fracture (principal); G82.50 Quadriplegia, unspecified; E03.9 Hypothyroidism, unspecified; E87.6 Hypokalemia; I10 Essential (primary) hypertension; I44.0 Atrioventricular block, first degree; I49.3 Ventricular premature depolarization; E05.90 Thyrotoxicosis, unspecified without thyrotoxic crisis or storm; E78.00 Pure hypercholesterolemia, unspecified; G89.4 Chronic pain syndrome; I25.10 Atherosclerotic heart disease of native coronary artery without angina pectoris; I73.9 Peripheral vascular disease, unspecified; I25.2 Old myocardial infarction; Z79.02 Long term (current) use of antithrombotics/antiplatelets; Z79.82 Long term (current) use of aspirin; Z79.899 Other long term (current) drug therapy; Z85.048 Personal history of other malignant neoplasm of rectum, rectosigmoid junction, and anus; Z85.3 Personal history of malignant neoplasm of breast; Z87.891 Personal history of nicotine dependence; Z90.12 Acquired absence of left breast and nipple; Z91.81 History of falling; Z95.5 Presence of coronary angioplasty implant and graft; W18.30XA Fall on same level, unspecified, initial encounter; Y93.01 Activity, walking, marching and hiking; Y92.89 Other specified places as the place of occurrence of the external cause; Y99.8 Other external cause status
CPT/HCPCS: 36415; 73610; 76000; 80048; 80076; 83735; 84439; 84443; 84484; 85025; 93005; 93970; 97110; 97162; 97166; 99285; A6449; J0665; J1650; J2250; J2470; J2704; J3010; J3373

== ENCOUNTER 2025-02-11 16:17 | Inpatient (IN) | payer MEDICARE ==
[~2025-02-11] VITALS: Ht 165.1 cm; Wt 67.8 kg
[~2025-02-11 16:17] MED LIST changes: +ASPI-1497 MT; +FERR-71 PO; +HYDR-4001 PO
[2025-02-11] MEDS ORDERED: HYDROCODONE/ACETAMINOPHEN 5/325MG TABLET PO PRN (16:45)
[2025-02-11] MEDS ORDERED: IPRATROPIUM/ALBUTEROL 0.5-3(2.5)MG/3ML NEB HHN PRN (16:45)
[2025-02-11] MEDS ORDERED: ACETAMINOPHEN 325MG TABLET PO PRN (16:45)
[2025-02-11] MEDS ORDERED: CLONIDINE 0.1MG TABLET PO PRN (16:45)
[2025-02-11] MEDS ORDERED: ONDANSETRON HCL 4MG/2ML INJ IV PRN (16:45)
[2025-02-11] MEDS ORDERED: ACETAMINOPHEN 500MG TABLET PO PRN (16:45)
[2025-02-11] MEDS ORDERED: GUAIFENESIN 200MG/10ML SUGAR FREE UDC PO PRN (16:45)
[2025-02-11] MEDS ORDERED: NALOXONE HCL 0.4MG/ML VIAL IV PRN (17:15)
[2025-02-11 18:15] VITALS: BP 146/69; PULSE 81; RESP 18; TEMP 36.418
[2025-02-11] MEDS: SODIUM CHLORIDE 0.9% 500 ML IV ONE (18:49)
[2025-02-11 20:00] VITALS: BP 130/72; PULSE 83; RESP 18; TEMP 36.3; O2SAT 98
[2025-02-11] MEDS: ATORVASTATIN CALCIUM 40MG TABLET PO SCH (20:57)
[2025-02-11] MEDS: DOCUSATE SODIUM 100MG CAPSULE PO SCH (21:00)
[2025-02-11] MEDS: HYDRALAZINE HCL 50MG TABLET PO SCH (22:00)
[2025-02-11 22:58] LABS: HEPATITIS C AB NON REACTIVE (Neg) (Negative)
[2025-02-12] MEDS ORDERED: SODIUM CHLORIDE 0.45% 1,000 ML IV SCH (06:00)
[2025-02-12] MEDS: LEVOTHYROXINE SODIUM 75MCG TABLET PO SCH (06:37)
[2025-02-12 07:23] LABS: BASOPHILS % 0.9 % (0.0-2.0); EOSINOPHILS % 2.0 % (0.0-5.0); HEMATOCRIT. 41.6 % (36.0-48.0); HEMOGLOBIN. 13.6 g/dL (12.0-16.0); LYMPHOCYTES % 22.3 % (20.0-50.0); MEAN PLATELET VOLUME 8.9 fl (7.4-10.4); MONOCYTES % 9.2 % (2.0-8.0); NEUTROPHILS % 65.6 % (40.0-76.0); PLATELET 166 x1000/uL (130-400); RED BLOOD CELL COUNT 4.37 mill/uL (4.2-5.4); RED CELL DISTRIBUTION WIDTH 14.9 % (11.6-14.6)
[2025-02-12 07:40] LABS: CREATININE 0.9 mg/dL (0.6-1.0)
[2025-02-12 07:41] LABS: UREA NITROGEN BLOOD 12 mg/dL (9-23)
[2025-02-12 07:42] LABS: ASPARTATE AMINOTRANSFERASE 22 IU/L (<34)
[2025-02-12 07:43] LABS: BILIRUBIN TOTAL 0.9 mg/dL (0.1-1.0); PROTEIN TOTAL 6.1 g/dL (6.0-8.3)
[2025-02-12 08:00] VITALS: BP 136/63; PULSE 87; RESP 18; TEMP 36.6
[2025-02-12] MEDS: PANTOPRAZOLE SODIUM 40 MG/VIAL IV SCH (09:00)
[2025-02-12] MEDS: ENOXAPARIN 40MG/0.4ML SYR SUBCUT SCH (09:59)
[2025-02-12] MEDS: MULTIVITAMINS,THER W-MINERALS TABLET PO SCH (09:59)
[2025-02-12] MEDS: CLOPIDOGREL 75MG TABLET PO SCH (10:01)
[2025-02-12] MEDS: AMLODIPINE 5MG TABLET PO SCH (10:02)
[2025-02-12] MEDS ORDERED: ASPIRIN 81MG TABLET PO NR (10:30)
[2025-02-12] MEDS ORDERED: PANTOPRAZOLE 40MG DR TABLET PO SCH (10:45)
[2025-02-12] MEDS: ASPIRIN 81MG TABLET PO SCH (10:56)
[2025-02-12] MEDS: PANTOPRAZOLE 40MG DR TABLET PO SCH (10:56)
[2025-02-12 20:00] VITALS: BP_SYST 141; BP_SYST 144; BP_DIAS 63; PULSE 75; RESP 18; TEMP 36.8; TEMP 36.9
[2025-02-12 22:34] LABS: COLOR URINE YELLOW (YELLOW); GLUCOSE URINE NEGATIVE (NEGATIVE); KETONES URINE NEGATIVE (NEGATIVE); LEUKOCYTE ESTERASE URINE TRACE (NEGATIVE); NITRITE URINE NEGATIVE (NEGATIVE); OCCULT BLOOD URINE NEGATIVE (NEGATIVE); PH URINE 5.5 (4.5-8.0); PROTEIN URINE NEGATIVE (NEGATIVE); SPECIFIC GRAVITY URINE 1.017 (1.005-1.030); UROBILINOGEN URINE 0.2 E.U./dL (0.2-1.0)
[2025-02-12 22:55] LABS: CLARITY URINE CLEAR (CLEAR); WBC URINE 0-2 /hpf (0-2)
[2025-02-12 22:56] LABS: BACTERIA URINE NONE SEEN; RBC URINE NONE SEEN /hpf (0-2); SQUAMOUS EPITHELIAL CELL URINE 1+ /lpf (RARE/1+)
[2025-02-13 08:00] VITALS: BP 135/58; PULSE 80; RESP 18; TEMP 36.4
[2025-02-13 11:43] LABS: BASOPHILS % 0.7 % (0.0-2.0); EOSINOPHILS % 2.0 % (0.0-5.0); HEMATOCRIT. 45.1 % (36.0-48.0); HEMOGLOBIN. 14.4 g/dL (12.0-16.0); LYMPHOCYTES % 18.6 % (20.0-50.0); MEAN PLATELET VOLUME 9.2 fl (7.4-10.4); MONOCYTES % 6.8 % (2.0-8.0); NEUTROPHILS % 71.9 % (40.0-76.0); PLATELET 202 x1000/uL (130-400); RED BLOOD CELL COUNT 4.70 mill/uL (4.2-5.4); RED CELL DISTRIBUTION WIDTH 14.7 % (11.6-14.6)
[2025-02-13 12:01] LABS: CREATININE 0.9 mg/dL (0.6-1.0)
[2025-02-13 12:02] LABS: UREA NITROGEN BLOOD 11 mg/dL (9-23)
[2025-02-13 12:03] LABS: ASPARTATE AMINOTRANSFERASE 34 IU/L (<34); PROTEIN TOTAL 7.0 g/dL (6.0-8.3)
[2025-02-13 12:04] LABS: BILIRUBIN TOTAL 0.7 mg/dL (0.1-1.0)
[2025-02-13] MEDS: POTASSIUM CHLORIDE 20MEQ TABLET SR PO NR (12:16)
[2025-02-13 20:00] VITALS: BP 143/48; PULSE 66; RESP 20; TEMP 36.4; O2SAT 99
[2025-02-13 21:12] LABS: FOLIC ACID (FOLATE) SERUM 18.80 ng/mL (>5.38)
[2025-02-13 21:13] LABS: VITAMIN B12 SERUM 976 pg/mL (211-911)
[2025-02-14] MEDS: PANTOPRAZOLE 40MG DR TABLET PO SCH (06:16)
[2025-02-14 08:00] VITALS: BP 113/55; PULSE 87; RESP 18; TEMP 35.7; O2SAT 100
[2025-02-14] MEDS: ASCORBIC ACID 500 MG TABLET PO SCH (08:24)
[2025-02-14] MEDS: FERROUS SULFATE 325MG TABLET PO SCH (08:24)
[2025-02-14 20:00] VITALS: BP 122/64; PULSE 73; RESP 18; TEMP 36.3; O2SAT 98
[2025-02-14] MEDS ORDERED: KCL 20MEQ/100ML PREMIX 100 ML IV NR (20:15)
[2025-02-14] MEDS ORDERED: POTASSIUM CHLORIDE 20MEQ TABLET SR PO PRN (21:45)
[2025-02-14] MEDS: POTASSIUM CHLORIDE 20MEQ/PACKET PO SCH (21:48)
[2025-02-15 07:22] LABS: BASOPHILS % 0.7 % (0.0-2.0); EOSINOPHILS % 2.9 % (0.0-5.0); HEMATOCRIT. 39.1 % (36.0-48.0); HEMOGLOBIN. 13.0 g/dL (12.0-16.0); LYMPHOCYTES % 25.7 % (20.0-50.0); MEAN PLATELET VOLUME 8.9 fl (7.4-10.4); MONOCYTES % 10.5 % (2.0-8.0); NEUTROPHILS % 60.2 % (40.0-76.0); PLATELET 180 x1000/uL (130-400); RED BLOOD CELL COUNT 4.11 mill/uL (4.2-5.4); RED CELL DISTRIBUTION WIDTH 14.2 % (11.6-14.6)
[2025-02-15 07:28] LABS: CREATININE 0.8 mg/dL (0.6-1.0)
[2025-02-15 07:29] LABS: UREA NITROGEN BLOOD 12 mg/dL (9-23)
[2025-02-15 07:31] LABS: PHOSPHORUS 2.6 mg/dL (2.5-4.9)
[2025-02-15 08:00] VITALS: BP 124/62; PULSE 76; RESP 18; TEMP 36.4; O2SAT 98
[2025-02-15] MEDS ORDERED: HYDROCODONE/ACETAMINOPHEN 5/325MG TABLET PO PRN (12:45)
[2025-02-15] MEDS: ACETAMINOPHEN 500MG TABLET PO PRN (14:32)
[2025-02-15 20:00] VITALS: BP 127/66; PULSE 72; RESP 18; TEMP 36.5; O2SAT 100
[2025-02-16 08:00] VITALS: BP 127/65; PULSE 80; RESP 17; TEMP 36.6; O2SAT 100
[2025-02-16] MEDS: LIDOCAINE 5% PATCH TOP PRN (12:51)
[2025-02-16 20:00] VITALS: BP 142/69; PULSE 73; RESP 17; TEMP 36.1; O2SAT 100
[2025-02-16] MEDS ORDERED: HYDROCODONE/ACETAMINOPHEN 5/325MG TABLET PO PRN (21:00)
[2025-02-17 08:00] VITALS: BP 130/70; PULSE 77; RESP 19; TEMP 36.1; O2SAT 98
[2025-02-17 20:00] VITALS: BP 128/60; PULSE 80; RESP 20; TEMP 36.9; O2SAT 98
[2025-02-18 08:00] VITALS: BP 143/68; PULSE 79; RESP 18; TEMP 36.5; O2SAT 100
[2025-02-18 09:00] VITALS: BP 134/59; PULSE 80
[2025-02-18 20:00] VITALS: BP 136/67; PULSE 72; RESP 18; TEMP 36.6; O2SAT 100
[2025-02-18] MEDS: PREGABALIN 25MG CAPSULE PO SCH (20:58)
[2025-02-19 06:00] VITALS: BP 120/70; PULSE 81
[2025-02-19 08:19] VITALS: BP 122/74; PULSE 71; RESP 18; TEMP 36.4; O2SAT 100
[2025-02-19 20:00] VITALS: BP 124/56; PULSE 70; RESP 18; TEMP 36.2; O2SAT 96
[2025-02-19 22:14] VITALS: BP 118/58; PULSE 66
[2025-02-20 05:24] VITALS: BP 130/69; PULSE 68
[2025-02-20] MEDS: FAMOTIDINE 20MG TABLET PO SCH (08:44)
[2025-02-20 11:10] LABS: BASOPHILS % 0.5 % (0.0-2.0); EOSINOPHILS % 1.8 % (0.0-5.0); HEMATOCRIT. 36.4 % (36.0-48.0); HEMOGLOBIN. 11.9 g/dL (12.0-16.0); LYMPHOCYTES % 19.7 % (20.0-50.0); MEAN PLATELET VOLUME 8.6 fl (7.4-10.4); MONOCYTES % 8.5 % (2.0-8.0); NEUTROPHILS % 69.5 % (40.0-76.0); PLATELET 213 x1000/uL (130-400); RED BLOOD CELL COUNT 3.81 mill/uL (4.2-5.4); RED CELL DISTRIBUTION WIDTH 14.8 % (11.6-14.6)
[2025-02-20 11:25] LABS: CREATININE 0.8 mg/dL (0.6-1.0); UREA NITROGEN BLOOD 11 mg/dL (9-23)
[2025-02-20] MEDS ORDERED: NALOXONE HCL 0.4MG/ML VIAL IV PRN (12:15)
[2025-02-20] MEDS: POTASSIUM CHLORIDE 20MEQ TABLET SR PO NR (16:36)
[2025-02-20 17:12] LABS: CLARITY URINE CLEAR (CLEAR); COLOR URINE YELLOW (YELLOW); GLUCOSE URINE NEGATIVE (NEGATIVE); KETONES URINE NEGATIVE (NEGATIVE); LEUKOCYTE ESTERASE URINE 1+ (NEGATIVE); NITRITE URINE NEGATIVE (NEGATIVE); OCCULT BLOOD URINE NEGATIVE (NEGATIVE); PH URINE 5.5 (4.5-8.0); PROTEIN URINE NEGATIVE (NEGATIVE); SPECIFIC GRAVITY URINE 1.017 (1.005-1.030); UROBILINOGEN URINE 0.2 E.U./dL (0.2-1.0)
[2025-02-20 17:28] LABS: BACTERIA URINE 1+
[2025-02-20 17:29] LABS: RBC URINE 0-2 /hpf (0-2); SQUAMOUS EPITHELIAL CELL URINE 1+ /lpf (RARE/1+)
[2025-02-20] MEDS ORDERED: DEXT 5% WATER 500 ML IV NR (19:30)
[2025-02-20 20:00] VITALS: BP 127/56; PULSE 64; RESP 18; TEMP 36.2; O2SAT 64
[2025-02-20] MEDS: SULFAMETHOXAZOLE/TRIMETHOPRIM 800/160MG TABLET PO SCH (21:52)
[2025-02-20] MEDS: POTASSIUM CHLORIDE 20MEQ/PACKET PO NR (21:52)
[2025-02-20] MEDS: PREGABALIN 50 MG CAPSULE PO SCH (21:53)
[2025-02-21] MEDS: POTASSIUM CHLORIDE 20MEQ/PACKET PO SCH (06:18)
[2025-02-21 08:00] VITALS: BP 134/66; RESP 18; TEMP 36
[2025-02-21 08:59] LABS: CREATININE 0.8 mg/dL (0.6-1.0); UREA NITROGEN BLOOD 13 mg/dL (9-23)
[2025-02-21] MEDS ORDERED: HYDROCODONE/ACETAMINOPHEN 5/325MG TABLET PO PRN (19:00)
[2025-02-21 20:00] VITALS: BP 137/60; PULSE 75; RESP 20; TEMP 36.3; O2SAT 98
[2025-02-22 08:00] VITALS: BP 132/57; PULSE 71; RESP 18; TEMP 36.4; O2SAT 100
[2025-02-22 10:13] VITALS: BP 132/57; PULSE 71; RESP 18; TEMP 97.6
[2025-02-22] MEDS ORDERED: AMLO5TAB88 PO (13:16)
[2025-02-22] MEDS ORDERED: ASCO500C14 PO (13:17)
== END 2025-02-22 14:03 | disposition home health service (06) | DRG 559 ==
PROVIDERS: ADMIT Physical Medicine & Rehabilitation Spinal Cord Injury Medicine; ATTEND Hospitalist
DX: S82.832D Other fracture of upper and lower end of left fibula, subsequent encounter for closed fracture with routine healing (principal); G82.50 Quadriplegia, unspecified; I10 Essential (primary) hypertension; E03.9 Hypothyroidism, unspecified; E87.6 Hypokalemia; E78.5 Hyperlipidemia, unspecified; E05.90 Thyrotoxicosis, unspecified without thyrotoxic crisis or storm; G89.4 Chronic pain syndrome; I25.10 Atherosclerotic heart disease of native coronary artery without angina pectoris; I25.2 Old myocardial infarction; I44.0 Atrioventricular block, first degree; I45.10 Unspecified right bundle-branch block; I49.3 Ventricular premature depolarization; I73.9 Peripheral vascular disease, unspecified; M48.061 Spinal stenosis, lumbar region without neurogenic claudication; M54.16 Radiculopathy, lumbar region; M47.816 Spondylosis without myelopathy or radiculopathy, lumbar region; R26.9 Unspecified abnormalities of gait and mobility; R79.89 Other specified abnormal findings of blood chemistry; R53.81 Other malaise; I08.1 Rheumatic disorders of both mitral and tricuspid valves; Z95.5 Presence of coronary angioplasty implant and graft; Z91.81 History of falling; Z87.891 Personal history of nicotine dependence; Z85.3 Personal history of malignant neoplasm of breast; Z85.048 Personal history of other malignant neoplasm of rectum, rectosigmoid junction, and anus; Z79.899 Other long term (current) drug therapy; Z79.82 Long term (current) use of aspirin; Z79.02 Long term (current) use of antithrombotics/antiplatelets; S82.62XD Displaced fracture of lateral malleolus of left fibula, subsequent encounter for closed fracture with routine healing; S14.109D Unspecified injury at unspecified level of cervical spinal cord, subsequent encounter; S82.63XD Displaced fracture of lateral malleolus of unspecified fibula, subsequent encounter for closed fracture with routine healing; W18.30XD Fall on same level, unspecified, subsequent encounter; Z88.8 Allergy status to other drugs, medicaments and biological substances
CPT/HCPCS: 36415; 73610; 80048; 80053; 81003; 82306; 82607; 82728; 82746; 83036; 83540; 83550; 83735; 84100; 84134; 84443; 85025; 86705; 87340; 97110; 97112; 97116; 97162; 97166; 97530; 97535; 97542; J1650; J2470; J3480

== ENCOUNTER → 2025-05-02 | Outpatient (CLI) | payer MEDICARE ==
[~2025-05-02] MED LIST changes: +AMLO5TAB88 PO; +ASCO500C14 PO; -HYDR-4001 PO
== END | disposition home or self-care (01) ==
LOC: MRI 07:08
PROVIDERS: ATTEND Neurological Surgery
DX: M50.01 Cervical disc disorder with myelopathy, high cervical region (principal); M50.23 Other cervical disc displacement, cervicothoracic region; M48.03 Spinal stenosis, cervicothoracic region; M47.814 Spondylosis without myelopathy or radiculopathy, thoracic region; M47.12 Other spondylosis with myelopathy, cervical region
CPT/HCPCS: 72141; 72146